=== PATIENT | male | born 2000 | race Caucasian/White ===

== ENCOUNTER 2022-08-15 15:27 | Emergency (ER) | payer MEDICAID ==
[~2022-08-15] VITALS: Ht 188 cm; Wt 136.1 kg
[2022-08-15 15:39] VITALS: BP_SYST 142; PULSE 84; RESP 20; TEMP 98.3; O2SAT 98
[2022-08-15] MEDS ORDERED: AMOX-423 PO (15:39)
[2022-08-15] MEDS ORDERED: DIPHTH,PERTUSS(ACELL),TET VAC 0.5 ML VIAL (Tdap) I.M. ONE (15:45)
[2022-08-15 16:47] VITALS: BP_SYST 142; PULSE 84; RESP 20; TEMP 98.3; O2SAT 98
== END 2022-08-15 16:48 | disposition home or self-care (01) ==
LOC: SED 15:27
DX: S71.131A Puncture wound without foreign body, right thigh, initial encounter (principal); Z79.899 Other long term (current) drug therapy; W54.0XXA Bitten by dog, initial encounter; Y93.89 Activity, other specified; Y92.89 Other specified places as the place of occurrence of the external cause; Y99.8 Other external cause status
CPT/HCPCS: 90715; 99283